=== PATIENT | male | born 1960 | race Caucasian/White ===

== ENCOUNTER 2018-10-12 18:13 | Inpatient (IN) | payer OTHER ==
[~2018-10-12] VITALS: Ht 182.9 cm; Wt 124.4 kg
--- NOTE | ~2018-10-12 | EKG ---
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: Farzaneh TURCIOS : 1960 Requested By: Nohelia Mac Order Number: [id number] MD: Oleg Tripp Measurements Intervals [place] Rate: 88 P: [place]: QRS: -71 QRSD: 110 T: 245 QT: 412 QTc: 499 Interpretive Statements Atrial fibrillation Inferior infarct, old Poor R wave progression consider anterior infarct, age indeterminate Low Voltage Non specific ST/T wave changes Compared to ECG 10/12/2018 18:19:57 No significant changes Electronically Signed On 10-13-2018 13:37:26 SITE DIRECTOR by Oleg Tripp [email or web address] <ELECTRONICALLY SIGNED> By: Oleg Tripp MD 10/13/18 1337 1149 1149 Oleg Tripp MD /EPI
--- NOTE | ~2018-10-12 | EKG ---
[address] [address] ELECTROCARDIOGRAM REPORT Name: SOFY BOYD Room #: 364-P ADM IN M.R.#: [id number] Admission: 10/12/18 Attend Phys: Dominic Luna MD Discharge: Date of : 56 Report #: [id number] THIS REPORT FOR: //name// 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
--- NOTE | ~2018-10-12 | EKG ---
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 : 1960 Requested By: Nohelia Mac Order Number: [id number] MD: Hesham Richards Measurements Intervals [place] Rate: 91 P: [place]: QRS: -65 QRSD: 93 T: 92 QT: 370 QTc: 456 Interpretive Statements Atrial fibrillation Inferior infarct, old Anteroseptal infarct, age indeterminate Compared to ECG 10/13/2018 11:49:13 No significant changes Electronically Signed On 10-14-2018 9:38:55 ANESTHESIA ASSOCIATE by Hesham Richards [email or web address] <ELECTRONICALLY SIGNED> By: Hesham Richards MD 10/14/18 0938 0755 0755 Hesham Richards MD /GABRIEL
--- NOTE | ~2018-10-12 | 2DMMODE ---
[facility] [address] [place] [address] 2 D/M-MODE ECHOCARDIOGRAM Name: DEBSOFY Room #: 364-P ADM IN M.R.#: [id number] Admission: 10/12/18 Attend Phys: Dominic Luna MD Discharge: Date of : 56 Date of Service: 10/13/18 1009 Report #: [id number] THIS REPORT FOR: //name// APPROVED REPORT Study performed: 10/13/2018 08:39:42 EXAM: Comprehensive 2D, Doppler, and color-flow Echocardiogram Patient Location: Bedside Room #: 364 Status: routine BSA: 2.44 HR: 83 bpm BP: 114/70 mmHg Rhythm: Atrial Fibrillation Other Information Study Quality: Adequate Indications COPD Diabetes Atrial Fibrillation CAD Hypertension/HDD 2D Dimensions RVDd: 45.60 mm IVSd: 11.51 (7-11mm) LVOT Diam: 22.99 (18-24mm) LVDd: 57.00 mm PWd: 11.51 (7-11mm) Ascending Ao: 30.33 (22-36mm) LVDs: 42.38 (25-40mm) Aortic Root: 36.80 mm IVC: 23.00 mm Volumes Left Atrial Volume (Systole) Single Plane 4CH: 71.08 mL Single Plane 2CH: 70.89 mL LA ESV Index: 34.00 mL/m2 Aortic Valve AoV Peak Ferny.: 1.35 m/s AO Peak Gr.: 7.25 mmHg LVOT Max P.56 mmHg LVOT Max V: 0.94 m/s KENDRICK Vmax: 2.91 cm2 [facility] [address] [place] [address] 2 D/M-MODE ECHOCARDIOGRAM Name: SOFY BOYD Room #: 364-P ADM IN Jeffrey.#: [id number] Admission: 10/12/18 Attend Phys: Dominic Luna MD Discharge: Date of : 56 Date of Service: 10/13/18 1009 Report #: [id number] Pulmonary Valve PV Peak Ferny.: 1.08 m/s PV Peak Gr.: 4.71 mmHg Tricuspid Valve TR Peak Ferny.: 2.74 m/s TR Peak Gr.: 30.07 mmHg PA Pressure: 40.00 mmHg Left Ventricle Left ventricle is at the upper limits of normal. Regional wall motion is not well visualized. Mild concentric left ventricular hypertrophy. Left ventricular systolic function is mildly decreased. LVEF is 45%. This study is not technically sufficient to allow evaluation of the LV diastolic function due to atrial fibrillation. Right Ventricle Right ventricle is dilated. The right ventricular systolic function is normal. Atria Left atrium is at the upper limits of normal. Right atrium is dilated. Aortic Valve The aortic valve is normal in structure. No aortic regurgitation is present. There is no aortic valvular stenosis. Mitral Valve The mitral valve is normal in structure. Trace to mild mitral regurgitation. No evidence of mitral valve stenosis. Tricuspid Valve The tricuspid valve is normal in structure. There is mild tricuspid regurgitation. Estimated PAP 40 mmHg. There is mild-moderate pulmonary hypertension. Pulmonic Valve The pulmonary valve is normal in structure. There is no pulmonic valvular regurgitation. Great Vessels The aortic root is normal in size. IVC is dilated and collapses <50% with inspiration. Pericardium There is no pericardial effusion. [facility] [place] [address] 2 D/M-MODE ECHOCARDIOGRAM Name: SOFY BOYD Room #: 364-P ADM IN M.R.#: [id number] Admission: 10/12/18 Attend Phys: Dominic Luna MD Discharge: Date of : 56 Date of Service: 10/13/181008 Report #: [id number] <Conclusion> Left ventricular systolic function is mildly decreased. LVEF is 45%. Right atrium and ventricle are dilated. The aortic valve is normal in structure. No aortic regurgitation or stenosis The mitral valve is normal in structure. Trace to mild mitral regurgitation. There is mild tricuspid regurgitation. Estimated pulmonary artery pressure of 40 mmHg. There is no pericardial effusion. <ELECTRONICALLY SIGNED> By: Greg Ochoa MD, [facility] 10/13/181008 08 08 Greg Ochoa MD, FACC /INF
[2018-10-12 18:13] VITALS: BP 144/84
[~2018-10-12 18:13] MED LIST: ACETAMINOPHEN650 M3 PO; CEFTIN 250 MG250 MG PO; COMBIVENT INH; IBUPROFEN 400400 M2 PO; LISINOPRIL10 MG; METFORMIN HCL500 MG PO; PERCOCET PO; PREDNISONE 5 MG5 MG PO; SYMBICORT160 MCG/4. INH; VENTOLIN HFA 1818 GM INH; ZOCOR 10 MG TAB10 MG PO
[2018-10-12 18:44] LABS: BE(vivo) 2.3 mmol/L (-2 to +3); HCO3 28.7 mmol/L (22.0-26.0); PCO2 50.7 mmHg (35.0-45.0); PO2 141.1 mmHg (80.0-100.0); sO2 98.7 % (92.0-98.0)
[2018-10-12 19:20] LABS: BASOPHILS 0.4 % (0.0-2.0); EOSINOPHILS 2.7 % (0.0-3.0); HEMATOCRIT 46.2 % (42.0-52.0); HEMOGLOBIN 15.4 gm/dL (14.0-18.0); LYMPHOCYTES 11.3 % (24.0-44.0); MCH 28.8 pg (26.0-34.0); MCHC 33.4 g/dL (28.0-37.0); MCV 86.4 fL (80.0-100.0); MONOCYTES 7.6 % (1.0-8.0); PLATELET COUNT 183 thou/uL (150-400); RBC 5.34 mil/uL (4.50-6.00); RDW 13.9 % (10.5-14.5); WBC 10.3 thou/uL (4.0-11.0)
[2018-10-12 19:29] LABS: ANION GAP 6 mmol/L (7-16); BUN 16 mg/dL (7-18); CALCIUM 9.3 mg/dL (8.5-10.1); CHLORIDE 100 mmol/L (98-107); CO2 29 mmol/L (21-32); CREATININE 0.9 mg/dL (0.7-1.3); GLUCOSE 130 mg/dL (74-106); SODIUM 135 mmol/L (136-145)
[2018-10-12 19:38] LABS: SGOT 22 U/L (15-37); SGPT 22 U/L (30-65); TOTAL BILIRUBIN 0.4 mg/dL (<0.1-1.0); TOTAL PROTEIN 7.3 g/dL (6.4-8.2); TROPONIN-I <0.06 ng/mL (<0.06)
[2018-10-12 19:51] LABS: APTT 28.2 Seconds (24.5-32.8); D-DIMER 0.3 ug/mLFEU (0.19-0.50); PROTIME 10.5 Seconds (9.3-11.4)
[2018-10-12 19:52] LABS: ALBUMIN 3.2 g/dL (3.4-5.0); MAGNESIUM 1.5 mg/dL (1.8-2.4)
[2018-10-12 20:02] VITALS: BP 123/73
[2018-10-12 20:51] VITALS: BP 113/66
[2018-10-12 21:08] VITALS: BP 132/79
[2018-10-12] MEDS ORDERED: WELLBUTRIN 75 M75 M1 PO (23:37)
[2018-10-12] MEDS ORDERED: COREG6.25 MG PO (23:39)
[2018-10-12] MEDS ORDERED: COMBIVENT INH (23:40)
[2018-10-12] MEDS ORDERED: ZANTAC 150MG T150 MG PO (23:41)
[2018-10-12] MEDS ORDERED: SENNA8.6 MG PO (23:43)
[2018-10-12] MEDS ORDERED: VITAMIN D1000 UNI1 PO (23:45)
[2018-10-12] MEDS ORDERED: XARELTO20 MG PO (23:46)
[2018-10-12] MEDS ORDERED: MUCINEX600 MG PO (23:47)
[2018-10-12] MEDS ORDERED: MIRALAX17 GM PO (23:49)
[2018-10-13 01:13] VITALS: BP 117/85
[2018-10-13 02:05] LABS: MAGNESIUM 1.6 mg/dL (1.8-2.4)
[2018-10-13 05:10] VITALS: BP 114/70
[2018-10-13 09:06] VITALS: BP 106/67
[2018-10-13 12:03] VITALS: BP 109/70
[2018-10-13 12:32] LABS: CHOLESTEROL 106 mg/dL (<200); HDL CHOLESTEROL 45 mg/dL (>40); LDL CHOLESTEROL 53 mg/dL (<100); TC:HDL 2.4 Ratio (Not establshd); TRIGLYCERIDE 41 mg/dL (<150); VLDL 8 mg/dL (<40)
[2018-10-13 16:37] VITALS: BP 113/75
[2018-10-13 19:54] VITALS: BP 119/79
[2018-10-14 03:26] VITALS: BP 103/54
[2018-10-14 07:48] VITALS: BP 124/86
[2018-10-14 11:26] VITALS: BP 124/76
[2018-10-14 15:54] VITALS: BP 120/67
[2018-10-14 19:30] VITALS: BP 122/82
[2018-10-15 04:00] VITALS: BP 146/88
[2018-10-15 06:07] LABS: CALCIUM 9.2 mg/dL (8.5-10.1); CREATININE 0.8 mg/dL (0.7-1.3); POTASSIUM 4.1 mmol/L (3.5-5.1)
[2018-10-15 07:51] VITALS: BP 123/83
[2018-10-15 11:21] VITALS: BP 131/79
[2018-10-15 15:47] VITALS: BP 123/83
[2018-10-15 20:04] VITALS: BP 105/65
[2018-10-16 03:40] VITALS: BP 127/87
[2018-10-16 06:27] LABS: CALCIUM 9.1 mg/dL (8.5-10.1); CREATININE 0.9 mg/dL (0.7-1.3); POTASSIUM 3.9 mmol/L (3.5-5.1)
[2018-10-16 08:10] VITALS: BP 151/96
[2018-10-16 11:36] VITALS: BP 145/93
[2018-10-16 15:49] VITALS: BP 119/68
[2018-10-16 19:53] VITALS: BP 116/81
[2018-10-17 02:56] VITALS: BP 128/83
[2018-10-17 08:00] VITALS: BP 138/85
[2018-10-17 12:03] VITALS: BP 139/90
[2018-10-17] MEDS ORDERED: ATORVASTATIN CA40 MG PO (15:23)
[2018-10-17] MEDS ORDERED: LANTUS100 UNIT/M SUBQ (15:23)
[2018-10-17] MEDS ORDERED: NOVOLOG100 UNIT/1 SUBQ (15:23)
[2018-10-17] MEDS ORDERED: PREDNISONE 20 M20 M1 PO (15:23)
[2018-10-17] MEDS ORDERED: PEPCID20 MG PO (15:23)
[2018-10-17] MEDS ORDERED: CEFUROXIME250 MG PO (15:23)
[2018-10-17] MEDS ORDERED: CARVEDILOL25 MG PO (15:23)
[2018-10-17] MEDS ORDERED: AZITHROMYCIN 2250 MG PO (15:23)
[2018-10-17] MEDS ORDERED: ADULT LOW DOSE81 MG PO (15:23)
[2018-10-17] MEDS ORDERED: LASIX 40 MG TAB40 M1 PO (15:23)
[2018-10-17] MEDS ORDERED: IPRAT-ALBUT 0.5-3 ML INH (15:23)
[2018-10-17] MEDS ORDERED: CARDIZEM CD 18180 M3 PO (15:23)
[2018-10-17] MEDS ORDERED: GLUCOPHAGE1000 MG PO (15:23)
[2018-10-17 16:33] VITALS: BP 114/78
== END 2018-10-17 18:03 | DRG 193 ==
LOC: ER 18:13 → 3W 21:13
PROVIDERS: Emergency Medicine; Internal Medicine Cardiovascular Disease; Nurse Practitioner Acute Care; Nurse Practitioner Adult Health
PROC: 5A09357 Assistance with Respiratory Ventilation, Less than 24 Consecutive Hours, Continuous Positive Airway Pressure (ICD-10-PCS; principal; 2018-10-12)
DX: J18.9 Pneumonia, unspecified organism (principal); J96.21 Acute and chronic respiratory failure with hypoxia; J44.1 Chronic obstructive pulmonary disease with (acute) exacerbation; J44.0 Chronic obstructive pulmonary disease with (acute) lower respiratory infection; I69.351 Hemiplegia and hemiparesis following cerebral infarction affecting right dominant side; L03.115 Cellulitis of right lower limb; L03.113 Cellulitis of right upper limb; I42.9 Cardiomyopathy, unspecified; I48.91 Unspecified atrial fibrillation; E78.00 Pure hypercholesterolemia, unspecified; F32.9 Major depressive disorder, single episode, unspecified; M19.90 Unspecified osteoarthritis, unspecified site; E83.42 Hypomagnesemia; E03.9 Hypothyroidism, unspecified; I11.0 Hypertensive heart disease with heart failure; I50.9 Heart failure, unspecified; G47.33 Obstructive sleep apnea (adult) (pediatric); E11.9 Type 2 diabetes mellitus without complications; F41.9 Anxiety disorder, unspecified; F17.210 Nicotine dependence, cigarettes, uncomplicated; E66.9 Obesity, unspecified; Z68.37 Body mass index [BMI] 37.0-37.9, adult; I69.320 Aphasia following cerebral infarction; I25.2 Old myocardial infarction; Z79.01 Long term (current) use of anticoagulants; Z79.84 Long term (current) use of oral hypoglycemic drugs; Z79.899 Other long term (current) drug therapy
CPT/HCPCS: 10879

== ENCOUNTER 2018-10-17 16:53 | Inpatient (IN) | payer OTHER ==
[~2018-10-17] VITALS: Ht 182.9 cm; Wt 119.7 kg
--- NOTE | ~2018-10-17 | EKG ---
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: Evans ESQUIVEL : 1960 Requested By: Sukhwinder Alan Order Number: [id number] MD: Sixto Meza Measurements Intervals [place] Rate: 81 P: [place]: QRS: -76 QRSD: 113 T: 66 QT: 393 QTc: 457 Interpretive Statements Atrial fibrillation Ventricular premature complex Borderline IVCD with LAD Inferior infarct, old Abnormal lateral Q waves Anterior infarct, old Compared to ECG 10/14/2018 07:55:57 Ventricular premature complex(es) now present Q waves now present Myocardial infarct finding still present Electronically Signed On 10-22-2018 20:25:27 WRAP TURNER by Sixto Meza [email or web address] <ELECTRONICALLY SIGNED> By: Sixto Meza MD 10/22/182024 18 18 Sixto Meza MD /EPI
--- NOTE | ~2018-10-17 | HC ---
[facility] [place] [address] [place] [address] CONSULTATION Name: SOFY BOYD Room #: 514-P ADM IN M.R.#: [id number] Admission: 10/17/18 Attend Phys: Zay Townsend MD Discharge: Date of : 56 Report #: [id number] THIS REPORT FOR: //name// CC: Zay Townsend Jagdeep Akkulugari DATE OF SERVICE: 10/21/2018 NEUROBEHAVIORAL STATUS EXAM: ATTENDING PHYSICIAN: Zay Townsend MD. DELIVERY PROFESSIONAL: Floyd Kessler, PhD. CLINICAL PRESENTATION: The patient is a 58-year-old male admitted to the [facility] Unit for comprehensive inpatient rehabilitation program. He was admitted following an episode of shortness of breath in the assisted living facility where he had been living for approximately one month. The patient was diagnosed with acute respiratory failure and required a BiPAP. He was noted to have an acute exacerbation of COPD, permanent atrial fibrillation with rapid ventricular response and right upper extremity and lower extremity cellulitis. His diagnosis for rehabilitation is cardiac debilitation, cardiomyopathy with diuretic therapy, COPD/respiratory failure/pneumonia, has been on steroids and antibiotics, permanent atrial fibrillation with stabilization of heart rates, hypertension, hyperlipidemia, premorbid CVA with aphasia, left hemispheric, right upper and right lower extremity hemiparesis with increased tone, right upper and right lower extremity cellulitis, history of diabetes mellitus type 2, hypertension, obstructive sleep apnea and a history of tobacco abuse. A complete description of his medical condition and history can be found in his medical record. Neuropsychological consultation was requested to provide assistance in the assessment of cognitive and emotional status and to provide recommendations and services. The patient reportedly had been in a custodial unit until about 1 month ago when he moved into assisted living. The patient is unable to provide a history as a result of expressive aphasia. However, background information was obtained by his sister. The patient recently had to suffer the loss of a brother about one month ago. He has two living sisters and 1 brother. He is a high school graduate. 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 He is a high school graduate. The patient is with one son. He has a remote history of methamphetamine abuse. TECHNIQUES UTILIZED: Clinical interview, review of medical records, staff consultation and behavioral observation, mini mental status exam 2 brief version, family interview -- sister. [facility] [address] [place] [address] CONSULTATION Name: SOFY BOYD Room #: 514-P [facility] IN M.R.#: [id number] Admission: 10/17/18 Attend Phys: Zay Townsend MD Discharge: Date of : 56 Report #: [id number] EXAMINATION FINDINGS: The patient required encouragement to maintain alertness and participation in the assessment. He attempted to respond when questioned. The expressive aphasia created limitations in his ability to accurately participate in the assessment. He indicates deficits in memory, word finding and difficulty with sleep. His appetite is within normal limits. The patient reported to have increased emotional lability. He was tearful last evening as he experienced a seizure during his recovery. His performance on the MMSE 2 brief version was extremely low with a raw score of 6/16. He was 3/3 with initial registration, 1/5 for orientation to time and 1/[address]. He was 1/3 for immediate recall of 3 items after a brief time delay and distraction. Naming was within normal limits. The patient was unable to read and follow single command. However, he was able to follow an auditory 1-step command. The patient is presenting with inconsistent orientation to time and place. Variability in functioning is also reported by doing physical therapy. He is presenting with increased fatigue and is more drowsy. It should be noted that he has started taking Keppra for assistance in management of seizure activity, which is likely contributing to his lethargy today. DIAGNOSTIC IMPRESSION: 1. Delirium, hypoactive, acute. 2. Major neurocognitive disorder due to vascular disease, without behavior disorder -- extent to be determined, likely moderate to severe. 3. Remote history of methamphetamine abuse. 4. Unspecified depressive disorder. RECOMMENDATIONS: Continued use of an antidepressant will be of benefit. Verbal comprehension appears much better than expression. He will benefit from verbal praise and complements about participation in therapies. Reassurance in regard to his treatment will also be of benefit to lessen anxiety. His family had been out of town and is returning tonight. Increased family support will also help lessen emotional reactivity. I will continue to follow during his rehabilitation program. Thank you very much for allowing me to provide the consultation on this patient. By: [id number] Floyd Kessler, PhD /nt
--- NOTE | ~2018-10-17 | HC ---
[facility] [place] [address] CONSULTATION Name: SOFY BOYD Room #: 514-P [facility] IN M.R.#: [id number] Admission: 10/17/18 Attend Phys: Casper Townsend MD Discharge: Date of : 56 Report #: [id number] THIS REPORT FOR: //name// CC: CASPER Savage REASON FOR CONSULTATION: The patient is a 58-year-old male with dysphagia and possibly gastroesophageal regurgitation. HISTORY OF PRESENT ILLNESS: This 58-year-old male has history of a stroke about a year and a half ago. He presented to [facility] on 10/12/2018 with shortness of breath and diagnosed with acute respiratory failure. He was treated for exacerbation of his chronic obstructive pulmonary disease and rapid atrial fibrillation. He underwent cardiovascular evaluation and was found to have an ejection fraction of 47%. Nuclear study revealed evidence of an old infarct. He also has expressive aphasia and residual right-sided hemiparesis related to his previous CVA. He has had an overall decline in function. He has also had problems with dysphagia and was admitted to the rehab unit from the acute side to the hospital. He underwent a video swallow. Speech therapy notes were reviewed. Video swallow reveals impaired oropharyngeal function. However, he has been placed on thin liquids at this time. I am told that during the video swallow, there was evidence of regurgitation of barium tablet back in the esophagus. History is reviewed with the patient. Upper GI symptoms reviewed. He is a very poor historian. He denies heartburn, indigestion, nausea, vomiting, regurgitation or indigestion symptoms. I did speak with the nursing staff and they are very concerned about his swallowing and evidence or regurgitation. PAST MEDICAL HISTORY: High blood pressure, elevated lipids, diabetes, previous CVA, asthma, chronic obstructive pulmonary disease in a former cigarette smoker. He has had congestive heart failure, but ejection fraction of 47%. He has permanent atrial fibrillation, sleep apnea, substance abuse and previous pneumonia. PAST SURGICAL HISTORY: PEG tube placement, presumably after his previous stroke and right shoulder surgery. ALLERGIES: No known drug allergies. CURRENT MEDICATIONS: Acetaminophen, albuterol, ipratropium, aspirin, atorvastatin, benzocaine, bisacodyl, budesonide inhaled, Wellbutrin, carvedilol, cefuroxime, vitamin D, diltiazem, docusate, famotidine, furosemide, glucagon, [facility] [address] [place] [address] CONSULTATION Name: SOFY BOYD Room #: 514-P [facility] IN [facility]#: [id number] Admission: 10/17/18 Attend Phys: Casper Townsend MD Discharge: Date of : 56 Report #: [id number] glucose as needed, Lantus insulin, human insulin, lisinopril, magnesium hydroxide, metformin, polyethylene glycol as needed, prednisone, Xarelto, and sennosides. FAMILY HISTORY: He does not report any family history of gastrointestinal diseases. SOCIAL HISTORY: He has 3 children, alive and well. 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 He is a former cigarette smoker. He denies use of alcohol. REVIEW OF SYSTEMS: A 12-point review was completed with the patient. It is my opinion it is inaccurate as he denied any symptoms or problems which I asked. He responded negative to every single question asked. PHYSICAL EXAMINATION: GENERAL: The patient is a well-developed, somewhat unkempt male, in no acute distress. He is obese. He is pleasant, but often responds to questions with "I don't know. VITAL SIGNS: Blood pressure 119/65, pulse of 88. HEENT: Anicteric. Pupils equal and round. Oropharynx clear. NECK: Supple. CHEST: Clear anteriorly. HEART: Irregular S1, S2. ABDOMEN: Obese, normal bowel sounds, soft, nontender, without hepatosplenomegaly or masses. RECTAL: Not done. EXTREMITIES: 1+ bilateral pedal edema. There is erythema in the lower extremities. LABORATORY DATA: White count of 14.2, hemoglobin 15.4, platelet count of 232,000. Electrolytes unremarkable. Albumin 3.2. Liver function studies are normal. ASSESSMENT: 1. Oropharyngeal dysphagia. 2. Radiographic evidence of gastroesophageal regurgitation. 3. History of cerebrovascular accident. 4. Aphasia. 5. Atrial fibrillation. 6. Chronic obstructive pulmonary disease. 7. Sleep apnea. 8. Congestive heart failure, ejection fraction of 47%. RECOMMENDATIONS: 1. Discussed with nurse, continue swallowing measures. 2. Await Neurology input as a possible seizure yesterday, CT of the head [address] [address] CONSULTATION Name: SOFY BOYD Room #: 514-P [facility] IN ..#: [id number] Admission: 10/17/18 Attend Phys: Casper Townsend MD Discharge: Date of : 56 Report #: [id number] unchanged. 3. Consider endoscopic evaluation, but would wait for Neurology input. If upper endoscopy is done, he will need to hold his Xarelto. <ELECTRONICALLY SIGNED> By: Delmar Rashid MD 10/22/18 0952 1202 1220 Delmar Rashid MD /nt
--- NOTE | ~2018-10-17 | EEG ---
[facility] [place] [address] ELECTROENCEPHALOGRAM Name: SOFY BOYD Room #: 514-P [facility] IN M.R.#: [id number] Admission: 10/17/18 Attend Phys: Casper Townsend MD Discharge: Date of : 56 Report #: [id number] THIS REPORT FOR: //name// CC: CASPER Savage HISTORY: The patient is a 58-year-old male, status post large left middle cerebral artery stroke. Yesterday, the patient most likely had a seizure. He bit his tongue and was confused. DESCRIPTION: The awake record demonstrates an 8 Hz posterior dominant rhythm. The record demonstrates moderate amplitude 3.5 cycles per second activity, maximal over the left temporal head region. Spikes are seen at T3 and T5. No electrographic seizures were noted during this recording. IMPRESSION: This is an abnormal adult awake record. The patient has focal slowing over the left hemisphere with epileptiform discharges noted over the left mid to posterior temporal head region. If clinically indicated, this record would be consistent with a focal seizure disorder. <ELECTRONICALLY SIGNED> By: Corinne Prado DO 10/21/18 1552 1301 1311 Corinne Prado DO /nt
--- NOTE | ~2018-10-17 | HC ---
[facility] [place] [address] CONSULTATION Name: SOFY BOYD Room #: 514-P ADM IN M.R.#: [id number] Admission: 10/17/18 Attend Phys: Zay Townsend MD Discharge: Date of : 56 Report #: [id number] THIS REPORT FOR: //name// CC: Zay Savage HISTORY OF PRESENT ILLNESS: The patient is a 58-year-old male who yesterday was found to be less responsive by Respiratory Therapy when the nurse evaluated him. She also noticed that he had blood coming from the side of his mouth, and the patient shakes his head yes when I asked him if he has bit his tongue. The patient is currently in rehabilitation for stroke. The patient has aphasia and a significant right hemiparesis. To this point, he has never had a seizure until yesterday. PAST MEDICAL HISTORY: Cardiomyopathy, chronic obstructive pulmonary disease, atrial fibrillation, stroke, hypertension, hyperlipidemia and obstructive sleep apnea. PAST SURGICAL HISTORY: PEG tube placement, right shoulder surgery. MEDICATIONS: Aspirin 81 mg daily, atorvastatin 40 mg daily, bupropion 75 mg b.i.d., Cardizem 180 mg daily, carvedilol 25 mg b.i.d., Ceftin 500 mg b.i.d., vitamin D 3000 units daily, Colace 100 mg b.i.d., Pepcid 20 mg daily, furosemide 40 mg daily, guaifenesin 600 mg b.i.d., Lantus 10 units at bedtime, lisinopril 5 mg daily, MiraLax 17 grams daily, prednisone taper, Xarelto 20 mg daily, senna 17.6 mg daily. ALLERGIES: None. PHYSICAL EXAMINATION: VITAL SIGNS: Temperature 36.8, pulse rate 88, respiratory rate 20, blood pressure 119/65, bedside pulse oximetry 92% on 3 liters nasal cannula. LABORATORY DATA: White blood cell count 14.2, hemoglobin 15.4, hematocrit 46.4, platelet count 232,000. Chemistry: Sodium 135, potassium 3.6, chloride 99, carbon dioxide 34, BUN 22, creatinine 1, GFR 76 and glucose 70, calcium 8.7. IMAGING: CT angiogram demonstrates no evidence of acute intracranial hemorrhage or other acute intracranial abnormality. A large chronic left middle cerebral artery infarct with additional smaller infarcts involving the left posterior central gyrus is seen. These findings are not new. NEUROLOGIC EXAMINATION: Cranial nerves 2-12 grossly intact. I could not identify an appreciable facial droop, but the patient has a full wilson. He has an expressive aphasia. Motor exam demonstrates a significant right hemiparesis. Reflexes demonstrate a right reflex preponderance. Coordination in the right [address] [address] CONSULTATION Name: SOFY BOYD Room #: 514-P ADM IN M.R.#: [id number] Admission: 10/17/18 Attend Phys: Zay Townsend MD Discharge: Date of : 56 Report #: [id number] upper extremity demonstrates no evidence of dysmetria. This cannot be performed in the right upper extremity. IMPRESSION: This patient has had a focal seizure. Unfortunately, he is on bupropion, which is known to lower the seizure threshold, so I have had to discontinue this medication. I would recommend Prozac 10 mg daily in its place. Given that he has a large middle cerebral artery stroke, I have begun levetiracetam 500 mg twice a day. Seizure precautions should also be put in place. I will add an addendum to my note today once I have reviewed his EEG. If he has any additional seizures, please contact the Neurology Service for further adjustment in his medication. <ELECTRONICALLY SIGNED> By: Corinne Prado DO 10/21/18 1552 1235 1259 Corinne Prado DO /nt
--- NOTE | ~2018-10-17 | H ---
[facility] [place] [address] HISTORY AND PHYSICAL Name: SOFY BOYD Room #: 514-P [facility] IN M.R.#: [id number] Admission: 10/17/18 Attend Phys: Zay Townsend MD Discharge: 10/25/18 Date of : 56 Report #: [id number] THIS REPORT FOR: //name// CC: Zay Monzonm Akkulugari DATE OF SERVICE: 10/17/2018 HISTORY OF PRESENT ILLNESS: The patient is a 58-year-old white male who originally presented to the Emergency Room at [facility] on 10/12/2018 with worsening shortness of breath for 2 weeks. He was diagnosed with acute respiratory failure, initially required BiPAP, and was able to be transitioned to nasal cannula O2. He was noted to have acute exacerbation of chronic obstructive pulmonary disease, permanent atrial fibrillation with rapid ventricular response and right upper extremity and lower extremity cellulitis. He was placed on IV steroids, IV antibiotics, nebulizers, O2. He was seen by Cardiology and underwent stress testing. Results revealed ejection fraction 47% and no ECG evidence of ischemia, but nuclear findings positive for an old infarct in the inferoapical segment. 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 With his multiple medical comorbidities as noted above, he has had a decline in his overall functional independence. He also has dysphagia and is currently on nectar-thickened liquids. He has not been admitted for acute in-hospital inpatient rehabilitation. PAST MEDICAL HISTORY: Includes hypertension, hyperlipidemia, diabetes mellitus, prior cerebrovascular accidents as noted above, asthma, chronic obstructive pulmonary disease, congestive heart failure, atrial fibrillation, sleep apnea, tobacco abuse, substance abuse, and history of pneumonia. PAST SURGICAL HISTORY: Includes a prior history of a PEG tube. He has had right shoulder surgery. MEDICATIONS: Please see the full medication listing. This includes vitamins, herbals, and supplements. ALLERGIES: No known drug allergies. HABITS: Tobacco abuse, quit greater than a year ago. No history of alcohol abuse. FAMILY HISTORY: Not pertinent. SOCIAL HISTORY: Lives alone, independent living apartment. No stairs. He did [facility] [address] [place] [address] HISTORY AND PHYSICAL Name: SOFY BOYD Room #: 514-P [facility] IN .R.#: [id number] Admission: 10/17/18 Attend Phys: Zay Townsend MD Discharge: 10/25/18 Date of : 56 Report #: [id number] utilize a cane, single point inside the apartment and had an electric wheelchair for longer community distances. REVIEW OF SYSTEMS: Did not offer any current complaints of chest pain, shortness of breath or abdominal discomfort. He does not like the thickened liquids and I explained to him the reasons why. He has the weakness of the right upper and right lower extremity with some decreased sensation which is premorbid. No current complaints of specific pain. He has some cough and some shortness of breath with increased activities. PHYSICAL EXAMINATION: GENERAL: He is a pleasant, somewhat unkempt 58-year-old white male, in no obvious distress. VITAL SIGNS: Last recorded temperature 98.3, pulse 91, respirations 20, and blood pressure 136/78. The patient is alert and pleasant. HEENT: Appeared to be benign. He is on nasal prong O2, currently 3 liters. He has limited verbalizations, has some obvious word finding difficulties, but is able to do some telegraphic speech. EOMs appeared to be full. Facies appeared symmetric. CHEST: Some diffuse decreased breath sounds throughout. CARDIOVASCULAR: Sounded irregularly irregular. ABDOMEN: Bowel sounds. Soft and nontender. EXTREMITIES: He does have right upper and right lower extremity hemiparesis. He tends to hold the right hand in a fist position and has difficulty fully extending the wrist and fingers. Right upper extremity strength is grade 3+/5. He is less than antigravity elbow extension and wrist and right finger extension. Right lower extremity strength appears to be a grade 3+/5 proximal and distal is probably a grade 3 to 3+. There is some mild increase in tone. Positive Paz's 2-3+ at the knee. No clonus at the ankle. Functionally, he has been contact guard with gait min assist 170 feet with a standard cane. He is being fit with a right AFO. ASSESSMENT: A 58-year-old white male with the following problem list: 1. Cardiac debilitation. 2. Cardiomyopathy with diuretic therapy. 3. Chronic obstructive pulmonary disease/respiratory failure/pneumonia has been on steroids and antibiotics. 4. Permanent atrial fibrillation with stabilization of heart rates. 5. Hypertension. 6. Hyperlipidemia. 7. Premorbid cerebrovascular accident with aphasia, left hemispheric. 8. Right upper and right lower extremity hemiparesis with increased tone. 9. Recent right upper and right lower extremity cellulitis. 10. History of diabetes mellitus type 2. 11. Hypertension. 12. Obstructive sleep apnea. [facility] [address] [place] [address] HISTORY AND PHYSICAL Name: SOFY BOYD Room #: 514-P [facility] IN M.R.#: [id number] Admission: 10/17/18 Attend Phys: Zay Townsend MD Discharge: 10/25/18 Date of : 56 Report #: [id number] 13. History of tobacco abuse. PLAN: The patient was admitted for acute in-hospital inpatient rehabilitation. From a post-admission physician evaluation perspective, there are no relevant changes since the preadmission screening. Please see the above review of prior and current medical and functional conditions and comorbidities. Please see the patient's previous and current functional status. As far as risk of complications, the patient does have the above noted multiple medical comorbidities. Initial plan of care involves the interdisciplinary acute inpatient rehabilitation program with the goal of maximizing the patient's functional independence so that he can hopefully return back to his prior living situation. Measurable functional goals would be for the patient to become modified independent at the cane versus walker level. I am uncertain how much functional will have of that right upper extremity to utilize a walker if warranted. Also, try to improve ADLs, communication as well as swallowing as he continues on a nectar thickened liquid diet. Prognosis is reasonably good with estimated length of stay probably at least 2 weeks. Potential barriers would include the patient's multiple medical comorbidities and decreased functional status. The patient meets diagnostic criteria for an acute in-hospital inpatient rehabilitation stay. He meets medical necessity criteria and we will have the information resource consultant physicians continue to follow. He does have the tolerance for therapies and has appropriate discharge goals back to the home setting. <ELECTRONICALLY SIGNED> By: Zay Townsend MD 10/26/18 1454 1015 1046 Zay Townsend MD /nt
--- NOTE | ~2018-10-17 | PLAN ---
[facility] [place] [address] REHAB UNIT PLAN OF CARE Name: SOFY BOYD Room #: 514-P [facility] IN M.R.#: [id number] Admission: 10/17/18 Attend Phys: Zay Townsend MD Discharge: 10/25/18 Date of : 56 Report #: [id number] THIS REPORT FOR: //name// CC: Zay Townsend Jagdeep Akkulugari DATE OF SERVICE: 10/20/2018 PROGRESS NOTE/OVERALL PLAN OF CARE SUBJECTIVE: The patient is seen back today in followup. He is in no distress. OBJECTIVE: VITAL SIGNS: Last recorded temperature 98.2, pulse 86, respirations 18, blood pressure is 130/78. NEUROLOGIC: No calf swelling. Transfers are contact guard with gait min assist 150 feet with a standard cane. Lower body dressing is contact guard assistance. Speech Therapy is following regarding his swallowing and cognition. ASSESSMENT: 1. Cardiac debilitation. 2. Cardiomyopathy with diuretic therapy. 3. Chronic obstructive pulmonary disease, respiratory failure and pneumonia for which he has been on steroids and antibiotics. 4. Permanent atrial fibrillation with stabilization of heart rates. 5. Premorbid cerebrovascular accident with aphasia, left hemispheric. 6. History of right upper and right lower extremity hemiparesis with increased tone. 7. Dysphagia. 8. Hypertension. 9. Hyperlipidemia. 10. Obstructive sleep apnea. 11. History of tobacco abuse. PLAN: The overall plan of care is based on the pre-admission screen, post-admission physician evaluation, and information garnered from therapy assessments. 1. Estimated length of stay is at least 10 days to 2 weeks and will be determined pending progress. 2. Medical prognosis is reasonably good. 3. Anticipated interventions include the interdisciplinary acute inpatient rehabilitation program with PT, OT, speech, and rehab nursing assisting regarding medication management, skin care prophylaxis, bowel and bladder issues and nursing education. Case management is involved as well as the interdisciplinary acute inpatient rehabilitation program. We will have the executive talent acquisition consultant physicians continue to follow. [address] [address] REHAB UNIT PLAN OF CARE Name: SOFY BOYD Room #: 514-P [facility] IN .R.#: [id number] Admission: 10/17/18 Attend Phys: Zay Townsend MD Discharge: 10/25/18 Date of : 56 Report #: [id number] 4. Anticipated functional outcomes would be for the patient to become modified independent with transfers, mobility, ADLs, cognitive communication issues that he can return back to the home setting. 5. Discharge destination would be back to the home setting where he lives alone in an independent living apartment. 6. Expected therapy by discipline includes PT, OT and speech 1 hour per day, each five days a week throughout the duration of the acute inpatient rehabilitation stay. <ELECTRONICALLY SIGNED> By: Zay Townsend MD 10/26/18 1454 0938 [id number] Zay Townsend MD /nt
[~2018-10-17 16:53] MED LIST changes: +ADULT LOW DOSE81 MG PO; +ATORVASTATIN CA40 MG PO; +AZITHROMYCIN 2250 MG PO; +CARDIZEM CD 18180 M3 PO; +CARVEDILOL25 MG PO; +CEFUROXIME250 MG PO; +COREG6.25 MG PO; +GLUCOPHAGE1000 MG PO; +IPRAT-ALBUT 0.5-3 ML INH; +LANTUS100 UNIT/M SUBQ; +LASIX 40 MG TAB40 M1 PO; +MIRALAX17 GM PO; +MUCINEX600 MG PO; +NOVOLOG100 UNIT/1 SUBQ; +PEPCID20 MG PO; +PREDNISONE 20 M20 M1 PO; +SENNA8.6 MG PO; +VITAMIN D1000 UNI1 PO; +WELLBUTRIN 75 M75 M1 PO; +XARELTO20 MG PO; +ZANTAC 150MG T150 MG PO
[2018-10-17 18:10] VITALS: BP 121/79
[2018-10-17 20:00] VITALS: BP 136/78
[2018-10-18 03:55] LABS: CALCIUM 9.1 mg/dL (8.5-10.1); CREATININE 1.1 mg/dL (0.7-1.3); POTASSIUM 3.7 mmol/L (3.5-5.1)
[2018-10-18 04:42] LABS: HEMATOCRIT 43.3 % (42.0-52.0); HEMOGLOBIN 14.2 gm/dL (14.0-18.0); MCH 27.9 pg (26.0-34.0); MCHC 32.7 g/dL (28.0-37.0); MCV 85.3 fL (80.0-100.0); RBC 5.08 mil/uL (4.50-6.00); WBC 11.9 thou/uL (4.0-11.0)
[2018-10-18 09:44] VITALS: BP 135/58
[2018-10-18 19:13] VITALS: BP 106/64
[2018-10-19 08:28] VITALS: BP 129/77
[2018-10-19 20:05] VITALS: BP 130/78
[2018-10-20 07:36] VITALS: BP 123/91
[2018-10-20 13:45] VITALS: BP 109/81
[2018-10-20 19:41] VITALS: BP 115/81
[2018-10-20 21:14] LABS: HEMATOCRIT 46.6 % (42.0-52.0); HEMOGLOBIN 15.4 gm/dL (14.0-18.0); MCH 28.1 pg (26.0-34.0); MCHC 33.1 g/dL (28.0-37.0); RBC 5.48 mil/uL (4.50-6.00); RDW 13.8 % (10.5-14.5); WBC 14.2 thou/uL (4.0-11.0)
[2018-10-20 21:21] LABS: CALCIUM 8.7 mg/dL (8.5-10.1); POTASSIUM 3.6 mmol/L (3.5-5.1)
[2018-10-21 08:00] VITALS: BP 119/65
[2018-10-21 19:48] VITALS: BP 98/64
[2018-10-22 07:45] VITALS: BP 110/87
[2018-10-22 20:10] VITALS: BP 97/64
[2018-10-23 04:06] LABS: CALCIUM 8.9 mg/dL (8.5-10.1); CREATININE 0.9 mg/dL (0.7-1.3)
[2018-10-23 04:08] LABS: HEMATOCRIT 44.2 % (42.0-52.0); HEMOGLOBIN 14.1 gm/dL (14.0-18.0); MCH 27.5 pg (26.0-34.0); RBC 5.14 mil/uL (4.50-6.00); RDW 14.1 % (10.5-14.5); WBC 11.3 thou/uL (4.0-11.0)
[2018-10-23 07:28] VITALS: BP 100/66
[2018-10-23 20:46] VITALS: BP 85/51
[2018-10-24] VITALS: BP 105/62
[2018-10-24 08:21] VITALS: BP 102/49
[2018-10-24 19:55] VITALS: BP 110/89
[2018-10-25 07:45] VITALS: BP 126/76
[2018-10-25] MEDS ORDERED: LASIX 40 MG TAB40 M1 PO (13:13)
[2018-10-25] MEDS ORDERED: CARVEDILOL25 MG PO (13:13)
[2018-10-25] MEDS ORDERED: PREDNISONE 10 M10 MG PO (13:13)
[2018-10-25] MEDS ORDERED: KEPPRA 500 MG500 M1 PO (13:13)
[2018-10-25 13:34] VITALS: BP 126/76
[2018-10-25 13:57] VITALS: BP 126/76
[2018-10-25 15:30] VITALS: BP 126/76
== END 2018-10-25 15:24 | disposition home health service (06) | DRG 947 ==
PROVIDERS: Hospitalist; Nurse Practitioner Family
DX: R53.81 Other malaise (principal); J96.00 Acute respiratory failure, unspecified whether with hypoxia or hypercapnia; J18.9 Pneumonia, unspecified organism; I69.351 Hemiplegia and hemiparesis following cerebral infarction affecting right dominant side; J44.0 Chronic obstructive pulmonary disease with (acute) lower respiratory infection; I42.9 Cardiomyopathy, unspecified; J44.1 Chronic obstructive pulmonary disease with (acute) exacerbation; L03.115 Cellulitis of right lower limb; L03.113 Cellulitis of right upper limb; G40.109 Localization-related (focal) (partial) symptomatic epilepsy and epileptic syndromes with simple partial seizures, not intractable, without status epilepticus; I48.91 Unspecified atrial fibrillation; E78.5 Hyperlipidemia, unspecified; E11.9 Type 2 diabetes mellitus without complications; G47.33 Obstructive sleep apnea (adult) (pediatric); I11.0 Hypertensive heart disease with heart failure; I50.9 Heart failure, unspecified; R13.12 Dysphagia, oropharyngeal phase; R41.0 Disorientation, unspecified; F01.50 Vascular dementia, unspecified severity, without behavioral disturbance, psychotic disturbance, mood disturbance, and anxiety; F15.11 Other stimulant abuse, in remission; F32.9 Major depressive disorder, single episode, unspecified; I69.320 Aphasia following cerebral infarction; Z87.891 Personal history of nicotine dependence; Z79.899 Other long term (current) drug therapy; Z79.82 Long term (current) use of aspirin
CPT/HCPCS: 10112

== ENCOUNTER 2019-01-29 03:23 | Inpatient (IN) | payer OTHER ==
[~2019-01-29] VITALS: Ht 182.9 cm; Wt 123.8 kg
[~2019-01-29 03:23] MED LIST changes: +KEPPRA 500 MG500 M1 PO; +PREDNISONE 10 M10 MG PO
[2019-01-29 03:25] VITALS: BP 167/102
[2019-01-29 03:34] LABS: BE(vivo) 4.8 mmol/L (-2 to +3); HCO3 32.8 mmol/L (22.0-26.0); PCO2 62.7 mmHg (35.0-45.0); PO2 227.2 mmHg (80.0-100.0); pH 7.336 (7.360-7.450); sO2 99.4 % (92.0-98.0)
[2019-01-29 03:58] LABS: EOSINOPHILS 0.3 % (0.0-3.0); HEMATOCRIT 42.9 % (42.0-52.0); HEMOGLOBIN 13.9 gm/dL (14.0-18.0); LYMPHOCYTES 13.8 % (24.0-44.0); MCH 27.4 pg (26.0-34.0); MCHC 32.5 g/dL (28.0-37.0); MCV 84.5 fL (80.0-100.0); MONOCYTES 7.8 % (1.0-8.0); PLATELET COUNT 252 thou/uL (150-400); POLYS 77.1 % (36.0-66.0); RBC 5.08 mil/uL (4.50-6.00); RDW 15.1 % (10.5-14.5); WBC 11.7 thou/uL (4.0-11.0)
[2019-01-29 04:06] LABS: CALCIUM 9.1 mg/dL (8.5-10.1); CREATININE 0.9 mg/dL (0.7-1.3); POTASSIUM 3.8 mmol/L (3.5-5.1)
[2019-01-29 04:15] LABS: ALBUMIN 3.1 g/dL (3.4-5.0); TOTAL BILIRUBIN 0.3 mg/dL (<0.1-1.0); TOTAL PROTEIN 6.6 g/dL (6.4-8.2); TROPONIN-I 0.06 ng/mL (<0.06)
[2019-01-29] MEDS ORDERED: SENNA8.6 MG PO (04:23)
[2019-01-29] MEDS ORDERED: ZANTAC 150MG T150 MG PO (04:27)
[2019-01-29] MEDS ORDERED: KAPSPARGO SPRIN50 MG PO (04:29)
[2019-01-29] MEDS ORDERED: ELIQUIS5 MG PO (04:30)
[2019-01-29 04:45] LABS: HCO3 32.7 mmol/L (22.0-26.0); PCO2 61.5 mmHg (35.0-45.0); PO2 83.5 mmHg (80.0-100.0); pH 7.343 (7.360-7.450); sO2 95.4 % (92.0-98.0)
[2019-01-29] MEDS ORDERED: PERCOCET PO (05:12)
[2019-01-29] MEDS ORDERED: NITROGLYCERIN0.4 MG SUBLING (05:13)
[2019-01-29 07:24] VITALS: BP 145/85
[2019-01-29 08:41] VITALS: BP 160/110
[2019-01-29 11:18] VITALS: BP 139/88
--- NOTE | 2019-01-29 15:08 | NUR ---
ASSESSMENT: CM REVIEWED CHART AND MET WITH PATIENT AT THE BEDSIDE. PT WAS ADMITTED WITH COPD EXACERBATION/CHF. PT LIVES IN AN RCF APT AT [facility] AND HAS HAD [facility]. PT HAS HX OF CVA AND USES A WHEELCHAIR MOST OF THE TIME FOR AMBULATION. PT STATES HE DOES NOT WEAR OXYGEN AT HOME OR HAVE A CPAP. PT REPORTS HE WISHES TO RETURN BACK TO HIS APT AT DISCHARGE AND WOULD LIKE TO USE [facility] AGAIN. CM NOTIFIED [facility]. CM ALSO SPOKE WITH PATIENTS SISTER TO UPDATE. CM WILL CONTINUE TO FOLLOW TO ASSIST NEEDED. CM NOTIFIED LIASON AT [facility] AND FAXED UPDATED CLINICAL.
[2019-01-29 16:02] VITALS: BP 109/61
--- NOTE | 2019-01-29 17:02 | EKG ---
[address] [address] ELECTROCARDIOGRAM REPORT Name: SOFY BOYD Room #: 358-P ADM IN M.R.#: [id number] ������������������ Admission: 01/29/19 ������������������ Attend Phys: Dominic Luna MD Discharge: ������������������ Date of : 56 Report #: [id number] ����������������������������������������������������������������� [id number] THIS REPORT FOR: //name// [facility] ED Test Date: 2019-01-29 Test Time: 03:43:16 Pat Name: SOFY BOYD Department: Room: 358 Gender: M Bogger Operator: julian : 1960 Requested By: Cris Camargo Order Number: [id number] MD: Greg Ochoa Measurements Intervals [place] Rate: 107 P: ME: QRS: -70 QRSD: 103 T: 86 QT: 349 QTc: 466 Interpretive Statements Atrial fibrillation RSR' in V1 or V2, right VCD Inferior infarct, old Consider anterior infarct Compared to ECG 10/20/2018 16:19:12 No significant change was found Electronically Signed On 01-29-2019 17:02:34 CDT by Greg Ochoa [email or web address] ��������������������������������������������� <ELECTRONICALLY SIGNED> ���������������������������������������� By: Greg Ochoa MD, [facility] ��������������������������������������������� 01/29/19 1702 0343 0343 Greg Ochoa MD, [facility] /EPI
--- NOTE | 2019-01-29 17:10 | NUR ---
PT ADMITTED THIS MORN FROM [facility]. HE HAS MEDS AND MEALS TAKEN CARE OF AND REPORTS HE USES A WALKER INDEPENDENTLY..SISTER REQUESTS ORDER FOR DUONEB MACHINE FOR HOME USE...
[2019-01-29 19:18] VITALS: BP 126/78
[2019-01-30] VITALS (7 sets, daily range): BP systolic 96–132; BP diastolic 60–86
--- NOTE | 2019-01-30 05:20 | NUR ---
PULSE HIGH 90S -110 WITH EPISODES OF INCREASED TACHYCARDIA UP TO 120-130S. NEW ORDER FOR DILTIAZEM FROM CARDIOLOGY TODAY, GIVEN TODAYS DOSE AT 2211. PULSE NOW 70-90, BP 110/80. VOIDING WELL PER URINAL. COMPLIANT WITH FLUID RESTRICTION ORDER. MAINTAINING ADEQUATE OXYGEN SATURATIONS WITH OXYGEN AT 3LITERS.
[2019-01-30 06:06] LABS: HEMATOCRIT 42.7 % (42.0-52.0); HEMOGLOBIN 14.1 gm/dL (14.0-18.0); MCH 27.6 pg (26.0-34.0); MCV 83.6 fL (80.0-100.0); RBC 5.12 mil/uL (4.50-6.00); RDW 15.3 % (10.5-14.5); WBC 13.6 thou/uL (4.0-11.0)
[2019-01-30 06:18] LABS: ANION GAP < 0 mmol/L (7-16); BUN 26 mg/dL (7-18); CALCIUM 9.4 mg/dL (8.5-10.1); CHLORIDE 98 mmol/L (98-107); CO2 35 mmol/L (21-32); GLUCOSE 214 mg/dL (74-106); POTASSIUM 3.4 mmol/L (3.5-5.1); SODIUM 132 mmol/L (136-145)
--- NOTE | 2019-01-30 15:51 | NUR ---
PT ALERT AND ORIENTED TIMES FOUR. VSS, 97%3L. PT DENIES PAIN/SOA. PT TOLERATES MEDS AND MEALS. PT UP TO BSC WITH ASSIST OF ONE. PT PROGRESSING TOWRADS POC GOALS.
[2019-01-31 03:50] VITALS: BP 122/78
--- NOTE | 2019-01-31 05:04 | NUR ---
Pt. rested quietly during the night when checked on during frequent rounds. He took a shower with the assistance of the concrete worker at his request. He offers no complaints. Bed alarm is on.
[2019-01-31 05:49] LABS: ABSOLUTE NEUTROPHILS 12.8 thou/uL (1.4-8.2); BASOPHILS 0.2 % (0.0-2.0); HEMATOCRIT 40.2 % (42.0-52.0); HEMOGLOBIN 13.4 gm/dL (14.0-18.0); LYMPHOCYTES 3.9 % (24.0-44.0); MCH 27.7 pg (26.0-34.0); MCHC 33.2 g/dL (28.0-37.0); MCV 83.3 fL (80.0-100.0); MONOCYTES 4.2 % (1.0-8.0); PLATELET COUNT 241 thou/uL (150-400); POLYS 91.7 % (36.0-66.0); RBC 4.83 mil/uL (4.50-6.00); RDW 15.3 % (10.5-14.5)
[2019-01-31 06:30] LABS: ANION GAP 8 mmol/L (7-16); BUN 38 mg/dL (7-18); CALCIUM 9.4 mg/dL (8.5-10.1); CHLORIDE 99 mmol/L (98-107); CO2 34 mmol/L (21-32); CREATININE 1.3 mg/dL (0.7-1.3); GLUCOSE 178 mg/dL (74-106); MAGNESIUM 1.7 mg/dL (1.8-2.4); POTASSIUM 3.5 mmol/L (3.5-5.1); TROPONIN-I <0.06 ng/mL (<0.06)
[2019-01-31 06:32] LABS: SODIUM 141 mmol/L (136-145)
[2019-01-31 07:51] VITALS: BP 133/82
[2019-01-31 12:38] VITALS: BP 104/64
[2019-01-31 16:00] VITALS: BP 123/61
[2019-01-31 19:20] VITALS: BP 116/67
--- NOTE | 2019-01-31 19:57 | NUR ---
PT UNSTEADY WHEN OOB..USES CANE AT HOME BUT DOES NOT HAVE HERE...ALARMS SET FOR BED AND CHAIR..REFUSED GAIT BELT...USES O2 EXTENSION TUBING AND ASSIST WHEN OOB...DISCUSSED FALL RISK POLICY AND STRONGLY ENCOURAGED PATIENT TO ALLOW GAIT BELT...
--- NOTE | 2019-02-01 03:43 | NUR ---
Patient making progress towards outcome goals. Oxygenation optimal with 2L/NC. Vital signs and rhythm stable. High fall risk, precautions in place. Uses call light appropriately with needs.
[2019-02-01 04:05] VITALS: BP 130/81
[2019-02-01 07:00] VITALS: BP 124/80
[2019-02-01 13:22] VITALS: BP 117/63
--- NOTE | 2019-02-01 14:16 | NUR ---
on-going assessment: CM REVIEWED CHART AND SPOKE WITH ATTENDING. PT IS SLOWLY PROGRESSING TOWARDS DISCHARGE GOALS AND MAY BE POSSIBLY BE READYFOR DISCHARGE BACK TOMORROW WITH HH. CM NOTIFIED [facility] OF POSSIBLE DISCHARGE TOMORROW. CM ALSO NOTIFIED LIASON AT [facility] OF DISCHARGE POSSIBLY TOMORROW BACK TO RCF APT WITH HH. CM WILL CONTINUE TO FOLLOW TO ASSIST NEEDED.
[2019-02-01 15:30] VITALS: BP 115/73
[2019-02-01 19:30] VITALS: BP 136/82
--- NOTE | 2019-02-01 19:45 | NUR ---
PT HOPE TO DISCHARGE BACK TO ASSISTED LIVING AT [facility] TOMORROW...BREATHING IS EASED..INCREASED ACTIVITY...TAPERING STEROIDS AND IV ANTIBIOTICS CHANGED TO PO...WILL MONITOR..
[2019-02-02 03:51] VITALS: BP 120/78
--- NOTE | 2019-02-02 04:08 | NUR ---
Patient making progress towards outcome goals. Weaned off O2, sat 92-93% on room air. Vital signs and rhythm stable. High fall rissk, uses call light appropriately for needs.
[2019-02-02 05:54] LABS: HEMATOCRIT 40.8 % (42.0-52.0); HEMOGLOBIN 13.1 gm/dL (14.0-18.0); MCHC 32.1 g/dL (28.0-37.0); MCV 84.2 fL (80.0-100.0); RBC 4.84 mil/uL (4.50-6.00); RDW 15.3 % (10.5-14.5); WBC 12.7 thou/uL (4.0-11.0)
[2019-02-02 06:09] LABS: CALCIUM 9.5 mg/dL (8.5-10.1); POTASSIUM 4.4 mmol/L (3.5-5.1)
[2019-02-02 07:30] VITALS: BP 126/85
[2019-02-02 12:12] VITALS: BP 126/85
[2019-02-02] MEDS ORDERED: PREDNISONE 20 M20 M1 PO (12:39)
[2019-02-02] MEDS ORDERED: CARDIZEM CD240 MG PO (12:39)
[2019-02-02] MEDS ORDERED: COREG6.25 MG PO (12:39)
[2019-02-02] MEDS ORDERED: IPRAT-ALBUT 0.5-3 ML INH (12:39)
[2019-02-02] MEDS ORDERED: CEFUROXIME500 MG PO (12:39)
[2019-02-02] MEDS ORDERED: AZITHROMYCIN 2250 MG PO (12:39)
--- NOTE | 2019-02-02 14:38 | NUR ---
ON-GOING ASSESSMENT: CM REVIEWED CHART AND MET WITH PATIENT AT THE BEDSIDE. PT HAS ORDERS TO DISCHARGE BACK TO HIS RCF APT AT [facility] WITH HH ([facility]). CM NOTIFIED [facility] OF DISCHARGE AND PT IS ONLY ABLE TO GET NURSING SERVICES WITH HH , CM NOTIFIED ATTENDING. CM ALSO NOTIFIED ATTENDING THAT PATIENT HAS BEEN ON ROOM AIR ALL DAY AND NOT REQUIRING OXYGEN AND HE IS OK WITH PATIENT DISCHARGING WITH NO OXYGEN. PT REPORTS HAVING POWER SCOTTER AT HOME AND ALL THE DME HE NEEDS. DARRYL SPOKE WITH LIASON AT [facility] WHO STATES THEY DO NOT NEED A CHART COPY OR ANY ORDERS FAXED SINCE PATIENT IS IN RCF APT. PT REPORTS NOT HAVING TRANSPORTATION HOME AND [facility] STATING THEY CANNOT PROVIDE IT. CM CONTACTED [facility] [phone] TO ARRANGE TRANSPORTATION AND THEY WILL SENIOR PROJECT MANAGER PATIENT BETWEEN [phone] AT THE ER.(TRIP#[id number]). DARRYL NOTIFIED BEDSIDE RN. CASE CLOSED.
[2019-02-02 15:06] VITALS: BP 126/85
[2019-02-02 15:08] VITALS: BP 98/74
[2019-02-03 19:30] VITALS: BP 126/85
--- NOTE | 2019-02-03 19:31 | NUR ---
PATIENT ALERT AND ORIENTED AND DISCHARGED TO ASSISTIVE CARE FACILITY. SPOKE WITH PATIENT SISTER ABOUT DISCHARGE. DISCHARGED IN STABLE CONDITION WITH ALL PERSONAL BELONGINGS AND DISCHARGE ORDERS AND PRESCRIPTIONS.
== END 2019-02-02 17:26 | disposition home health service (06) | DRG 291 ==
LOC: ER 03:23 → EROBS 04:25 → 3W 07:29 → ENTRNSPT 02-02 17:25 → 3W 02-02 17:26
PROVIDERS: Nurse Practitioner Family; Student in an Organized Health Care Education/Training Program; ADMIT Internal Medicine
DX: I11.0 Hypertensive heart disease with heart failure (principal); J96.01 Acute respiratory failure with hypoxia; J96.02 Acute respiratory failure with hypercapnia; J44.1 Chronic obstructive pulmonary disease with (acute) exacerbation; I69.351 Hemiplegia and hemiparesis following cerebral infarction affecting right dominant side; I42.9 Cardiomyopathy, unspecified; I50.23 Acute on chronic systolic (congestive) heart failure; E11.9 Type 2 diabetes mellitus without complications; E78.5 Hyperlipidemia, unspecified; F41.9 Anxiety disorder, unspecified; F32.9 Major depressive disorder, single episode, unspecified; I48.2 Chronic atrial fibrillation; E03.9 Hypothyroidism, unspecified; M19.90 Unspecified osteoarthritis, unspecified site; E66.9 Obesity, unspecified; Z68.37 Body mass index [BMI] 37.0-37.9, adult; I69.320 Aphasia following cerebral infarction; Z79.899 Other long term (current) drug therapy; Z79.4 Long term (current) use of insulin
CPT/HCPCS: 10879

== ENCOUNTER → 2019-03-23 | Outpatient (CLI) | payer OTHER ==
[~2019-03-23] MED LIST changes: +CARDIZEM CD240 MG PO; +CEFUROXIME500 MG PO; +ELIQUIS5 MG PO; +KAPSPARGO SPRIN50 MG PO; +NITROGLYCERIN0.4 MG SUBLING
== END ==
LOC: CAT 09:42
DX: J44.9 Chronic obstructive pulmonary disease, unspecified (principal); M79.89 Other specified soft tissue disorders; J98.4 Other disorders of lung; E11.9 Type 2 diabetes mellitus without complications; I11.0 Hypertensive heart disease with heart failure; I50.9 Heart failure, unspecified; Z79.84 Long term (current) use of oral hypoglycemic drugs; Z87.891 Personal history of nicotine dependence

== ENCOUNTER → 2019-04-12 | Outpatient (CLI) | payer OTHER ==
--- NOTE | 2019-04-15 22:12 | SLE ---
[facility] [place] [address] POLYSOMNOGRAPHY STUDY Name: SOFY BOYD Marzena Room #: [facility]#: [id number] Admission: 04/12/19 ������������������ Attend Phys: Mac Sanchez MD Discharge: ������������������ Date of : 56 Report #: [id number] THIS REPORT FOR: //name// CC: Mac Ballard MD DATE OF SERVICE: 04/12/2019 ATTENDING PHYSICIAN: Dr. Charlie Ballard. The patient is a 58-year-old who weighs 280 pounds with a BMI of 38. The patient's [place] score was not available. The patient was referred to [facility] for ruling out sleep apnea. The patient has a history of COPD and chronic atrial fibrillation. The patient has a history of a massive stroke. The patient was somewhat combative in the sleep lab and was not interested in the sleep study. During the night of the study, the patient spent 361 minutes in bed and slept for 261 minutes with a sleep efficiency of 72%. Sleep latency was 1.3 minutes with a REM latency of 114 minutes. Overall sleep architecture showed increased stage 1 sleep, normal stage 2 sleep, absent N3 sleep and slightly reduced REM sleep, which was 16% of the total sleep time. During the night of study, the patient had 3 obstructive apneas, no mixed or central apneas and 69 hypopneas. The patient's apnea-hypopnea index was 16.6 per hour with a REM index of 18.6 per hour. The patient's supine AHI was 35 per hour. EKG monitoring revealed atrial fibrillation. There were PVCs seen throughout. Average heart rate was 72 beats per minute with a maximum of 93 beats per minute. PLMS were seen at an index of 7.6 per hour and 3 per hour caused EEG arousals. Nocturnal oximetry study revealed an average oxygen saturation of 91% with the lowest of 72%. 44 minutes were spent at an oxygen saturation of less than 89%. The patient did meet the criteria for CPAP initiation. It was attempted, but the patient refused to be slept on CPAP. IMPRESSION: 1. Moderate sleep apnea-hypopnea syndrome with worsening during supine sleep. Total apnea-hypopnea index of 16.6 per hour with a supine apnea-hypopnea index of 35 per [address] [address] POLYSOMNOGRAPHY STUDY Name: SOFY BOYD Room #: [facility] Bond#: [id number] Admission: 04/12/19 ������������������ Attend Phys: Mac Sanchez MD Discharge: ������������������ Date of : 56 Report #: [id number] 2. Abnormal EKG with atrial fibrillation and multiple premature ventricular contractions. 3. Nocturnal hypoxia secondary to obstructive sleep apnea. 4. No clinically significant periodic limb movements of sleep. RECOMMENDATIONS: 1. Once the patient is willing to try CPAP, then he should return to the sleep lab for a titration study. 2. Once the patient is optimally treated, then follow up in 4-6 weeks to assess compliance with treatment and to document clinical improvement. 3. Weight loss is strongly advised. 4. Avoid CERTIFIED DIABETES EDUCATOR depressants. 5. Cautioned regarding driving until the patient's sleep apnea has resolved with the above recommendations. ��������������������������������������������� <ELECTRONICALLY SIGNED> ���������������������������������������� By: Mac Sanchez MD ��������������������������������������������� 04/15/19 2212 1658 1708 Mac Sanchez MD /nt
== END ==
LOC: SLEEPLAB 13:57
DX: G47.33 Obstructive sleep apnea (adult) (pediatric) (principal); G47.34 Idiopathic sleep related nonobstructive alveolar hypoventilation; J44.9 Chronic obstructive pulmonary disease, unspecified; I48.2 Chronic atrial fibrillation

== ENCOUNTER 2019-04-19 09:23 | Emergency (ER) | payer OTHER ==
[~2019-04-19] VITALS: Ht 182.9 cm; Wt 122.5 kg
[2019-04-19 10:19] LABS: BASOPHILS 0.9 % (0.0-2.0); EOSINOPHILS 0.7 % (0.0-3.0); HEMATOCRIT 44.3 % (42.0-52.0); HEMOGLOBIN 14.9 gm/dL (14.0-18.0); LYMPHOCYTES 13.2 % (24.0-44.0); MCH 29.2 pg (26.0-34.0); MCHC 33.6 g/dL (28.0-37.0); MCV 86.7 fL (80.0-100.0); PLATELET COUNT 204 thou/uL (150-400); POLYS 74.2 % (36.0-66.0); RBC 5.11 mil/uL (4.50-6.00); RDW 17.5 % (10.5-14.5); WBC 8.1 thou/uL (4.0-11.0)
[2019-04-19 10:24] LABS: ANION GAP 10 mmol/L (7-16); BUN 20 mg/dL (7-18); CALCIUM 9.3 mg/dL (8.5-10.1); CHLORIDE 98 mmol/L (98-107); CO2 29 mmol/L (21-32); CREATININE 1.3 mg/dL (0.7-1.3); GLUCOSE 303 mg/dL (74-106); SODIUM 137 mmol/L (136-145)
[2019-04-19 10:34] LABS: ALBUMIN 3.4 g/dL (3.4-5.0); SGOT 21 U/L (15-37); SGPT 26 U/L (30-65); TOTAL BILIRUBIN 0.5 mg/dL (<0.1-1.0); TOTAL PROTEIN 6.9 g/dL (6.4-8.2); TROPONIN-I <0.06 ng/mL (<0.06)
[2019-04-19 12:35] LABS: URINE BILIRUBIN NEGATIVE (Negative); URINE BLOOD NEGATIVE (Negative); URINE CLARITY CLEAR; URINE COLOR YELLOW; URINE GLUCOSE-RANDOM* 2+ (Negative); URINE KETONES NEGATIVE (Negative); URINE LEUKOCYTES-REFLEX NEGATIVE (Negative); URINE NITRITE-REFLEX NEGATIVE (Negative); URINE PROTEIN (DIPSTICK) TRACE (Negative); URINE SPECIFIC GRAVITY >= 1.030 (1.005-1.035); URINE UROBILINOGEN 0.2 E.U./dl (0.2-1.0)
[2019-04-19 15:20] VITALS: BP 94/63
[2019-04-19] MEDS ORDERED: DOXYCYCLINE 10100 MG PO (15:36)
--- NOTE | 2019-04-20 15:55 | EKG ---
[address] [address] ELECTROCARDIOGRAM REPORT Name: SOFY BOYD Room #: [facility]#: [id number] ������������������ Admission: 04/19/19 ������������������ Attend Phys: Discharge: 04/19/19 ������������������ Date of : 56 Report #: [id number] ����������������������������������������������������������������� [id number] THIS REPORT FOR: //name// [facility] ED Test Date: 2019-04-19 Test Time: 11:09:34 Pat Name: SOFY BOYD Department: Room: Gender: M Senior Maintenance Mechanic: : 1960 Requested By: Guillermina Parsons Order Number: [id number] MD: Greg Ochoa Measurements Intervals [place] Rate: 89 P: [place]: QRS: -78 QRSD: 100 T: 34 QT: 382 QTc: 465 Interpretive Statements Atrial fibrillation Ventricular premature complex Inferior infarct, old Anterior infarct, old Baseline wander in lead(s) II,aVF Compared to ECG 01/29/2019 03:43:16 Ventricular premature complex(es) now present Electronically Signed On 04-20-2019 15:54:56 CDT by Greg Ochoa [email or web address] ��������������������������������������������� <ELECTRONICALLY SIGNED> ���������������������������������������� By: Greg Ochoa MD, [facility] ��������������������������������������������� 04/20/19 1554 1109 1109 Greg Ochoa MD, [facility] /EPI
== END 2019-04-19 15:20 | disposition home or self-care (01) ==
LOC: ER 09:23
PROVIDERS: Physician Assistant
DX: R05 Cough (principal); M54.5 Low back pain; J44.9 Chronic obstructive pulmonary disease, unspecified; E78.00 Pure hypercholesterolemia, unspecified; I10 Essential (primary) hypertension; E11.9 Type 2 diabetes mellitus without complications; F32.9 Major depressive disorder, single episode, unspecified; M19.90 Unspecified osteoarthritis, unspecified site; I48.91 Unspecified atrial fibrillation; F17.210 Nicotine dependence, cigarettes, uncomplicated; Z86.73 Personal history of transient ischemic attack (TIA), and cerebral infarction without residual deficits

== ENCOUNTER 2020-01-01 09:53 | Inpatient (IN) | payer OTHER ==
[~2020-01-01] VITALS: Ht 185.4 cm; Wt 131.7 kg
[2020-01-01 09:53] VITALS: BP 137/84
[~2020-01-01 09:53] MED LIST changes: +DOXYCYCLINE 10100 MG PO
[2020-01-01 10:11] LABS: BE(vivo) 1.2 mmol/L (-2 to +3); PCO2 47.4 mmHg (35.0-45.0); pH 7.374 (7.360-7.450); sO2 91.8 % (92.0-98.0)
[2020-01-01 10:59] LABS: ABSOLUTE NEUTROPHILS 8.4 thou/uL (1.4-8.2); BASOPHILS 0.9 % (0.0-2.0); EOSINOPHILS 0.5 % (0.0-3.0); HEMATOCRIT 44.3 % (42.0-52.0); HEMOGLOBIN 14.5 gm/dL (14.0-18.0); LYMPHOCYTES 4.6 % (24.0-44.0); MCH 29.3 pg (26.0-34.0); MCHC 32.6 g/dL (28.0-37.0); MCV 89.9 fL (80.0-100.0); MONOCYTES 3.4 % (1.0-8.0); PLATELET COUNT 225 thou/uL (150-400); POLYS 90.6 % (36.0-66.0); RBC 4.93 mil/uL (4.50-6.00); RDW 16.1 % (10.5-14.5); WBC 9.2 thou/uL (4.0-11.0)
[2020-01-01 11:08] LABS: ANION GAP 10 mmol/L (7-16); BUN 21 mg/dL (7-18); CHLORIDE 98 mmol/L (98-107); CO2 30 mmol/L (21-32); CREATININE 1.3 mg/dL (0.7-1.3); GLUCOSE 319 mg/dL (74-106); POTASSIUM 4.1 mmol/L (3.5-5.1); SODIUM 138 mmol/L (136-145)
[2020-01-01 11:19] LABS: TROPONIN-I <0.06 ng/mL (<0.06)
[2020-01-01] MEDS ORDERED: FLONASE 0.05%50 MCG NARES (12:09)
[2020-01-01] MEDS ORDERED: TOPROL XL50 MG (12:11)
[2020-01-01] MEDS ORDERED: FUROSEMIDE 40 M40 MG PO (12:11)
[2020-01-01] MEDS ORDERED: PREDNISONE 5 MG5 M1 PO (12:12)
[2020-01-01] MEDS ORDERED: VITAMIN D3250 MCG PO (12:14)
[2020-01-01] MEDS ORDERED: NITROSTAT0.4 M1 SUBLING (12:16)
[2020-01-01] MEDS ORDERED: GOLYTELY SOLU4000 ML PO (12:17)
[2020-01-01] MEDS ORDERED: PERCOCET 5-3251 EACH PO (12:18)
[2020-01-01] MEDS ORDERED: COMBIVENT INH (12:19)
[2020-01-01] MEDS ORDERED: LIPITOR80 MG PO (12:19)
[2020-01-01] MEDS ORDERED: AMIODARONE HCL400 MG PO (12:19)
[2020-01-01] MEDS ORDERED: ELIQUIS5 MG PO (12:20)
[2020-01-01] MEDS ORDERED: MAPAP500 MG PO (12:22)
--- NOTE | 2020-01-01 17:01 | EKG ---
[facility] [place] [address] ELECTROCARDIOGRAM REPORT Name: SOFY BOYD Room #: 170-12 ADM IN M.R.#: [id number] Admission: 01/01/20 Attend Phys: Sukhwinder Alan MD Discharge: Date of : 56 Report #: [id number] THIS REPORT FOR: cc: Jagdeep Savage MD, Shyam MD Couchonnal, Luis F. MD ~ THIS REPORT FOR: //name// [facility] ED Test Date: 2020-01-01 Test Time: 10:12:14 Pat Name: SOFY BOYD Department: Room: 170 Gender: M Metal Buffer: NANCI : 1960 Requested By: Fernie Escalera Order Number: [id number] MD: Sixto Mzea Measurements Intervals [place] Rate: 103 P: 73 NM: 203 QRS: -84 QRSD: 112 T: 75 QT: 359 QTc: 470 Interpretive Statements Sinus tachycardia Borderline IVCD with LAD Anterolateral infarct, age indeterminate Compared to ECG 04/19/2019 11:09:34 Electronically Signed On 01-01-2020 17:00:46 DEPARTMENT STORE MANAGER by Sixto Meza [email or web address] <ELECTRONICALLY SIGNED> By: Sixto Meza MD 01/01/20 1700 1012 1012 Sixto Meza MD /EPI
[2020-01-01 18:33] VITALS: BP 147/78
[2020-01-01 18:40] VITALS: BP 131/71
[2020-01-01 20:10] VITALS: BP 112/70
[2020-01-02 00:15] VITALS: BP 110/61
[2020-01-02 03:33] LABS: HEMATOCRIT 39.5 % (42.0-52.0); HEMOGLOBIN 12.8 gm/dL (14.0-18.0); MCH 28.7 pg (26.0-34.0); MCHC 32.4 g/dL (28.0-37.0); MCV 88.5 fL (80.0-100.0); RBC 4.46 mil/uL (4.50-6.00); RDW 15.6 % (10.5-14.5); WBC 18.2 thou/uL (4.0-11.0)
[2020-01-02 03:41] LABS: CALCIUM 8.5 mg/dL (8.5-10.1); CREATININE 1.5 mg/dL (0.7-1.3); POTASSIUM 3.4 mmol/L (3.5-5.1)
[2020-01-02 04:10] VITALS: BP 115/66
[2020-01-02 08:04] VITALS: BP 111/77
[2020-01-02] MEDS ORDERED: OXYBUTYNIN 5 MG5 M2 PO (08:57)
--- NOTE | 2020-01-02 09:00 | NUR ---
PT ARRIVED FROM ER VIA CART. PLACED IN ROOM 360. ADMISSION ASSESSMENTS COMPLETED. PT REPORTEDLY ON BIPAP IN ER BUT ARRIVED TO THE ROOM ON O2 AT 6L PER NC. PT DENIED ANY SOA WHEN AT REST. SLIGHT INCREASE IN WOB DURING MOVEMENT BUT APPEARS TO RECOVER QUICKLY. ORDERS IN PROGRESS.
[2020-01-02 11:22] VITALS: BP 101/67
[2020-01-02 16:23] VITALS: BP 106/66
--- NOTE | 2020-01-02 16:55 | NUR ---
INITIAL ASSESSMENT: Reviewed chart and spoke with nursing and attending physician. Pt was admitted from [facility] due to COPD exacerbation. Discharge is anticipated for tomorrow. SW met with pt at bedside. Introduced role of SW. Pt is alert/orientated x 4. Pt states he uses a scooter at the facility. Pt with hx of CVA. Pt was not on O2 prior to admission. Pt has used [facility] in the past for home health. Pt confirms discharge plan. Clinical info to fax to [facility] tomorrow morning for review. SW is following to assist as needed with discharge planning.
[2020-01-02 19:40] VITALS: BP 111/65
[2020-01-03 04:25] VITALS: BP 120/49
[2020-01-03 07:30] VITALS: BP 110/71
--- NOTE | 2020-01-03 08:37 | NUR ---
PT MAKING PROGRESS TOWARD GOALS. PT UP WITH ONE PERSON ASSIST WITH AMBULATION TO THE TOILET. HAS GROSS MOTOR MOVEMENT WITH LEFT LEG, ABLE TO BEAR WEIGHT AND MOVE THE LEG TO WALK WITH ASISTANCE. OFFERED BSC BUT REFUSED AND WANTED TO GO TO THE TOILET.
[2020-01-03 11:10] VITALS: BP 116/79
[2020-01-03] MEDS ORDERED: AUGMENTIN 875-1 EACH PO (14:35)
[2020-01-03] MEDS ORDERED: PREDNISONE 10 M10 M1 PO (14:36)
[2020-01-03 15:32] VITALS: BP 115/69
--- NOTE | 2020-01-03 16:52 | NUR ---
DISCHARGE NOTE: SW reviewed chart and spoke with nursing and attending physician. Pt is medically stable for discharge back to [facility] RCF today. Pt does qualify for home O2. Pt needs 2L continuously. RITA met with pt at bedside to provide update and discuss need for home O2. Pt verbalized undertanding. Options provide for DME companies. No preference voiced. Pt's info faxed to [facility]. RITA obtained prior auth from [place]-[employer]icaid for home O2. Script sent to [facility]. [facility] to deliver portable tank and deliver home O2 equipment to pt's apt at [facility]. Pt needing stretcher van transportation home, as [facility] does not provide transportation. Director of case mgmt authorized transportation. RITA arranged stretcher van transportation through [employer] for [phone]. SW updated nursing. No chart copy needed. No additional SW needs identified at this time, but is available to assist should needs arise.
--- NOTE | 2020-01-03 18:18 | NUR ---
SPO2 ON ROOM AIR 84%. ON 2L > 93%. O2 DELIVERED TO ROOM. ANTICIPATING D/C AT [phone]. PT REPORTS FEELING BETTER, AGREEABLE WITH DISCHARGE.
== END 2020-01-03 19:24 | disposition home or self-care (01) | DRG 189 ==
LOC: ER 09:53 → EROBS 11:45 → 3W 18:41
PROVIDERS: Emergency Medicine; ADMIT Hospitalist
DX: J96.21 Acute and chronic respiratory failure with hypoxia (principal); J44.1 Chronic obstructive pulmonary disease with (acute) exacerbation; I48.20 Chronic atrial fibrillation, unspecified; I42.9 Cardiomyopathy, unspecified; J45.901 Unspecified asthma with (acute) exacerbation; I69.351 Hemiplegia and hemiparesis following cerebral infarction affecting right dominant side; J96.22 Acute and chronic respiratory failure with hypercapnia; E78.00 Pure hypercholesterolemia, unspecified; I10 Essential (primary) hypertension; E11.9 Type 2 diabetes mellitus without complications; F41.9 Anxiety disorder, unspecified; F32.9 Major depressive disorder, single episode, unspecified; M19.90 Unspecified osteoarthritis, unspecified site; G47.33 Obstructive sleep apnea (adult) (pediatric); Z79.01 Long term (current) use of anticoagulants; Z79.4 Long term (current) use of insulin; Z93.1 Gastrostomy status; I25.2 Old myocardial infarction; Z71.6 Tobacco abuse counseling; Z79.52 Long term (current) use of systemic steroids
CPT/HCPCS: 10879